=== PATIENT | male | born 1960 | race Asian ===

== ENCOUNTER 2023-12-23 18:49 | Emergency (ER) | payer MEDICAID ==
[~2023-12-23] VITALS: Ht 160 cm; Wt 54.4 kg
[2023-12-23 18:59] VITALS: BP 114/82; PULSE 77; RESP 14; TEMP 97.2; O2SAT 94
[2023-12-23] MEDS ORDERED: DEXTROSE 50% 50 ML SYR IVP ONE ×2 (19:06→21:09)
[2023-12-23] MEDS: DEXTROSE 50% 50 ML SYR IVP ONE ×2 (19:08→21:15)
[2023-12-23 21:41] LABS: BASOPHILS % (AUTO) 0.3 % (0.0-2.0); HEMATOCRIT 25.1 % (36-52); LYMPHOCYTES # (AUTO) 3.4 K/uL (2.0-11.5); LYMPHOCYTES % (AUTO) 34.8 % (20.5-51.1); MEAN CORPUSCULAR HEMOGLOBIN 43 pg (27-31); MEAN CORPUSCULAR HGB CONC 36 g/dL (33-37); MEAN CORPUSCULAR VOLUME 118.8 fL (80-94); MONOCYTES # (AUTO) 0.5 K/uL (0.8-1.0); MONOCYTES % (AUTO) 5.2 % (1.7-9.3); NEUTROPHILS # (AUTO) 5.9 K/uL (1.8-7.7); NEUTROPHILS % (AUTO) 59.7 % (42.2-75.2); PLATELET COUNT (AUTO) 210 K/uL (140-450); RED BLOOD CELL COUNT(AUTO) 2.11 MIL/uL (4.20-6.10); RED CELL DISTRIBUTION WIDTH 26.6 % (11.6-13.7); WHITE BLOOD COUNT (AUTO) 9.8 K/uL (4.8-10.8)
[2023-12-23 21:49] LABS: ANION GAP 15.8 (8-16); CALCIUM 7.2 mg/dL (8.5-10.1); CARBON DIOXIDE 27.4 mmol/L (21-32); CREATININE 1.7 mg/dL (0.6-1.3); POTASSIUM 4.2 mmol/L (3.5-5.1)
[2023-12-23 22:13] LABS: ALBUMIN 1.5 g/dL (3.4-5.0); BILIRUBIN,DIRECT 8.8 mg/dL (0.0-0.3); TOTAL PROTEIN, SERUM 4.6 g/dL (6.4-8.2)
[2023-12-23] MEDS ORDERED: cefTRIAXone 1,000 MG VIAL ONE (22:18)
[2023-12-23] MEDS ORDERED: AZITHROMYCIN 500 MG INJ VIAL IV ONE (22:18)
[2023-12-23 22:52] LABS: APPEARANCE,URINE CLEAR (CLEAR); BILIRUBIN,URINE 2+ (NEGATIVE); BLOOD, URINE 3+ (NEGATIVE); COLOR,URINE YELLOW (YELLOW); LEUKOCYTE ESTERASE ,URINE NEGATIVE (NEGATIVE); NITRITE, URINE NEGATIVE (NEGATIVE); PROTEIN,URINE NEGATIVE (NEGATIVE); UGLUCOSE TRACE (NEGATIVE)
[2023-12-23] MEDS: AZITHROMYCIN 500 MG in DEXTROSE 5% 250 ML IV ONE (22:53)
[2023-12-23] MEDS: NACL 0.9% 1,000 ML IV ONE (23:01)
[2023-12-23 23:02] LABS: BACTERIA,URINE 10-30 (MOD) /HPF (None Seen); ICTOTEST POSITIVE (NEGATIVE); MUCUS,URINE 1+ /LPF (None Seen); RBC,URINE 0-5 /HPF (0-5); SQUAMOUS EPITHELIAL CELL,UR 0-3 (FEW) /LPF (0-3 (FEW)); WBC,URINE 16-25 (MOD) /HPF (0-5)
[2023-12-23] MEDS: DEXTROSE 10% 1,000 ML IV ONE (23:50)
[2023-12-24 00:40] VITALS: BP 126/85; PULSE 83; RESP 14; TEMP 97.2; O2SAT 96
[2023-12-24] MEDS: MORPHINE SULFATE 4 MG/ML SYR IVP ONE (01:15)
[2023-12-24] MEDS: NACL 0.9% 1,000 ML IV ONE (01:40)
== END 2023-12-24 00:50 | disposition short-term general hospital (02) ==
LOC: MED 18:49
DX: J18.8 Other pneumonia, unspecified organism (principal); R10.9 Unspecified abdominal pain; R41.82 Altered mental status, unspecified; D64.9 Anemia, unspecified; E86.0 Dehydration; N39.0 Urinary tract infection, site not specified; Z85.07 Personal history of malignant neoplasm of pancreas
CPT/HCPCS: 36415; 70450; 71045; 74176; 80048; 80076; 81001; 82140; 82948; 83605; 83690; 84484; 85025; 87040; 87086; 87426; 93005; 96365; 96367; 96375; 96376; 99285; J0456; J0696; J2270; J7030; 96366; 96368